=== PATIENT | male | born 1990 | race Caucasian/White ===

== ENCOUNTER 2018-08-03 19:55 | Emergency (ER) | payer SELFPAY ==
[2018-08-03 20:02] VITALS: BP 126/72
[2018-08-03 20:37] LABS: CHLORIDE,CL 107 mEq/L (98-106); SODIUM,NA 146 mEq/L (136-145)
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
== END 2018-08-03 21:40 ==
LOC: CC.ED 19:55
DX: F10.921 Alcohol use, unspecified with intoxication delirium (principal); F15.90 Other stimulant use, unspecified, uncomplicated; F22 Delusional disorders; F17.210 Nicotine dependence, cigarettes, uncomplicated; Z88.8 Allergy status to other drugs, medicaments and biological substances; Z79.899 Other long term (current) drug therapy
CPT/HCPCS: 36415; 80053; 80305-QW; 81001; 85025; 99284; G0480